=== PATIENT | male | born 1935 | race Caucasian/White ===

== ENCOUNTER 2024-09-29 03:43 | Emergency (ER) | payer OTHER, SELFPAY ==
[2024-09-29] VITALS (8 sets, daily range): BP systolic 105–160; BP diastolic 54–86; PULSE 81; O2SAT 97; BMI 25.1
--- NOTE | 2024-09-29 03:51 | ED.GENMED ---
History of Present Illness
<Doug Richard DO - Last Filed: 09/29/24 06:39>
General
Chief Complaint: Fall
Source: patient and family
Exam Limitations: none
Time Seen by Provider: 09/29/24 03:49
Nursing documentation reviewed up to this point in time: agreed with
History of Present Illness
History of Present Illness:
This is a pleasantly demented 89-year-old male that presents to the emergency department after found him on the ground after a fall. He had a small abrasion to the back of the skull. She became concerned so she called 911. , who lives
with him despite his Alzheimer's, states that he typically gets up in the morning. She states that he would go to the kitchen and juice some fresh oranges. This morning she noted that he had used some ' yogurt and A grapefruit to attempt to juice
'. found on the ground and surmises that it was this passed out. Upon arrival, patient had no complaints. Bleeding had stopped. Patient was back to baseline.
Past History
<Doug Richard DO - Last Filed: 09/29/24 06:39>
Past History
ED Past Medical History: HTN and Other (Dementia, BPH)
ED Past Surgical History: Cholecystectomy
Social History
Tobacco: Non-smoker
Alcohol: None
Review of Systems
<Doug Richard DO - Last Filed: 09/29/24 06:39>
Review of Systems
Allergies reviewed?: Yes
All Other Systems: ROS reviewed and negative except as documented in HPI and ROS
Constitutional: Reports no symptoms
EENT: Reports no symptoms
Respiratory: Reports no symptoms
Cardiac: Reports no symptoms
ABD/GI: Reports no symptoms
: Reports no symptoms
Musculoskeletal: Reports no symptoms
Skin: Reports no symptoms
Neurological: Reports no symptoms
Endocrine: Reports no symptoms
Hematologic/Lymphatic: Reports no symptoms
Psychiatric: Reports anxiety
Course
<Doug Richard, DO - Last Filed: 09/29/24 06:39>
Orders/Labs/Results
Orders:
Orders
09/29/24 03:50
CT Head W/o Iv Contrast Urgent
Comment:
Reason For Exam: fall with posterior head trauma
09/29/24 03:57
Urinalysis Reflex To Culture Urgent
Date Specimen was Collected: 09/29/24
Time Specimen was Collected: 03:55
Urine Microscopic Reflex Cult Urgent
Urine Culture Urgent
JOHN Source: U
Specimen Description:
Date Specimen was Collected: 09/29/24
Time Specimen was Collected: 03:55
09/29/24 05:24
Fosfomycin [Monurol] 3 gm PO ONCE ONE
09/29/24 05:53
Ambulate Patient-Treatment ONCE
09/29/24 07:29
Hip, Left 2-3 Views [CR Hip - LT w/wo Pel 2-3 Vw*] Urgent
Comment:
Reason For Exam: pain
Include a pelvis x-ray?: Yes
Physical Therapy Consult [Pt Eval And Treat] Urgent
Activity Level: Out of Bed-Early Mobility
Abnormal Lab Results
09/29/24
03:57
Ur Occult Blood Reflex 2+ A
(Negative)
Leukocyte Esterase Rfl 2+ A
(Negative)
Urine RBC 11-15 A /HPF
(0-2)
Urine WBC (Reflex) >100 A /HPF
(0-5)
Urine Bacteria (Reflex) Many A
(Negative)
Vital Signs
Initial and Last Documented VS:
Initial Vital Signs
Temp Pulse Resp BP Pulse Ox
36.7 C 62 16 131/74 96
09/29/24 03:46 09/29/24 03:46 09/29/24 03:46 09/29/24 03:46 09/29/24 03:46
Last Documented Vital Signs
Temp Pulse Resp BP Pulse Ox
36.7 C 57 14 160/86 96
09/29/24 03:46 09/29/24 06:30 09/29/24 06:30 09/29/24 08:54 09/29/24 08:44
<Sherry Palafox PA-C - Last Filed: 10/02/24 07:22>
Orders/Labs/Results
Orders:
Orders
09/29/24 03:50
CT Head W/o Iv Contrast Urgent
Comment:
Reason For Exam: fall with posterior head trauma
09/29/24 03:57
Urinalysis Reflex To Culture Urgent
Date Specimen was Collected: 09/29/24
Time Specimen was Collected: 03:55
Urine Microscopic Reflex Cult Urgent
Urine Culture Urgent
JOHN Source: U
Specimen Description:
Date Specimen was Collected: 09/29/24
Time Specimen was Collected: 03:55
09/29/24 05:24
Fosfomycin [Monurol] 3 gm PO ONCE ONE
09/29/24 05:53
Ambulate Patient-Treatment ONCE
09/29/24 07:29
Hip, Left 2-3 Views [CR Hip - LT w/wo Pel 2-3 Vw*] Urgent
Comment:
Reason For Exam: pain
Include a pelvis x-ray?: Yes
Physical Therapy Consult [Pt Eval And Treat] Urgent
Activity Level: Out of Bed-Early Mobility
Abnormal Lab Results
09/29/24
03:57
Ur Occult Blood Reflex 2+ A
(Negative)
Leukocyte Esterase Rfl 2+ A
(Negative)
Urine RBC 11-15 A /HPF
(0-2)
Urine WBC (Reflex) >100 A /HPF
(0-5)
Urine Bacteria (Reflex) Many A
(Negative)
Vital Signs
Initial and Last Documented VS:
Initial Vital Signs
Temp Pulse Resp BP Pulse Ox
36.7 C 62 16 131/74 96
09/29/24 03:46 09/29/24 03:46 09/29/24 03:46 09/29/24 03:46 09/29/24 03:46
Last Documented Vital Signs
Temp Pulse Resp BP Pulse Ox
36.7 C 57 14 160/86 96
09/29/24 03:46 09/29/24 06:30 09/29/24 06:30 09/29/24 08:54 09/29/24 08:44
<Doug Richard DO - Last Filed: 09/29/24 06:39>
Update Note
Update Note:
CT HEAD
IMPRESSION:
No acute hemorrhage, herniation, or hydrocephalus.
No calvarial fracture.
The visualized paranasal sinuses and mastoid air cells are clear.
09/29/2024 0639 AM: Patient able to ambulate around the room with ease. Patient to be discharged home. Discussed plan with who is in agreement.
<Sherry Palafox PA-C - Last Filed: 10/02/24 07:22>
Update Note
Update Note:
CT HEAD
IMPRESSION:
No acute hemorrhage, herniation, or hydrocephalus.
No calvarial fracture.
The visualized paranasal sinuses and mastoid air cells are clear.
09/29/2024 0639 AM: Patient able to ambulate around the room with ease. Patient to be discharged home. Discussed plan with who is in agreement.
10/02/2024 0722 AM
Prelim urine culture positive. Was given fosfomycin. Will await sensitivities
ED Attending Note
<Doug Richard DO - Last Filed: 09/29/24 06:39>
-
Portions of this chart may have been created with voice recognition software.� Occasional wrong word or��sound alike� substitutions may have occurred due to the inherent limitations of voice recognition software.
Discharge Plan
Departure
Patient Disposition: Home (Routine Discharge)
Date of Disposition: 09/29/24
Time of Disposition: 06:37
Patient with high blood pressure during this ER visit?: Yes
Condition: Good
Discharge Problem:
Fall, Abrasion, Acute UTI
Instructions: Head Injury in Adults (DC), Preventing falls in adults, Skin Abrasions (DC), Urinary Tract Infection, Adult ED, BLOOD PRESSURE
Prescriptions:
No Action
donepezil 10 mg Tablet
10 mg PO QPM
atenolol 25 mg Tablet
25 mg PO QPM
finasteride 5 mg Tablet
5 mg PO QPM
cholecalciferol (vitamin D3) [Vitamin D3] 50 mcg (2,000 unit) Capsule
50 mcg PO QPM
mecobalamin (vitamin B12) [B12 Active] 1,000 mcg Tablet,Chewable
1,000 mcg PO QPM
Chlorpheniramine Allergy
1 tab PO DAILY PRN (Reason: allergies)
Referrals:
Leigh Joseph MD [Family Provider] -
Activity Restrictions/Additional Instructions:
Your urinary tract infection was treated with a one-time dose of antibiotics. No further antibiotics needed unless your culture suggests otherwise. If so you will get a phone call.
It was a pleasure meeting you and taking part in your care. We hope for your continued healing and wellness.
Please read discharge instructions in their entirety. However, they are for general education and may not describe your exact diagnosis at discharge. Information on your ER visit and medical conditions were discussed with you along with appropriate
follow up information...
If indicated, please take your medications as instructed and indicated on discharge paperwork.
Please schedule a follow up appointment as directed. Call to schedule an appointment
Please return to the emergency department with ANY change in, persisting, or worsening of symptoms. If any of your symptoms do not improve, or persist, or become more severe within 6-12 hours, please return to the emergency department for further
care.
Please return to the emergency department if you develop a headache, neck pain/stiffness, fever greater than 100.4F, chest pain, shortness of breath, persistent nausea, vomiting, slurred speech, difficulty walking, numbness/tingling, weakness, signs
of infection or any other symptoms that are worrisome to you.
If you have any questions or concerns please do not hesitate to call the Hospital at or E-mail me directly at [email or web address]
Interventions
Interventions:
*Risk Screen - Suicide Last Done: 09/29/24 03:46
*General Assessment Last Done: 09/29/24 03:46
*Neglect/Abuse Screening Last Done: 09/29/24 03:46
ED- Fall Risk Assessment Last Done: 09/29/24 05:00
*ED COVID-19 Vaccine History Last Done: 09/29/24 03:46
*Nursing Disposition Last Done: 09/29/24 07:13
ED-Musculoskeletal Assessment Last Done: 09/29/24 08:08
ED- Neurological Assessment Last Done: 09/29/24 08:00
ED-Skin Assessment Last Done: 09/29/24 08:08
Discharge Date and Time
Discharge Date/Time: 09/29/24 09:18
Print Language: [id number]
[2024-09-29 04:06] LABS: Urine Albumin Trace (Neg - Trace); Urine Bilirubin Negative (Negative); Urine Character Slightly Cloudy (Clear); Urine Color Yellow; Urine Glucose Negative (Negative); Urine Ketone Negative (Negative); Urine Leukocyte 2+ (Negative); Urine Nitrite Negative (Negative); Urine Occult Blood 2+ (Negative); Urine Urobilinogen Negative (Neg - 1+); Urine pH 6.5 (5.0-9.0)
[2024-09-29 04:53] LABS: Urine Amorphous Seen; Urine Mucus Moderate; Urine Squamous Cell >30 /LPF (Few); Urine White Cell >100 /HPF (0-5)
[2024-09-29 04:54] LABS: Urine Bacteria Many (Negative)
--- NOTE | 2024-09-29 05:00 | EDRN ---
Patient and were provided with a drink of juice, call santos in reach.
[2024-09-29] MEDS: MONUROL 3 GM PO (06:41)
--- NOTE | 2024-09-29 06:58 | EDRN ---
Patient was able to ambulate without difficulty and will be discharged home with , who called facility for a ride
--- NOTE | 2024-09-29 12:15 | CM ---
CM called patient's to confirm choice of home PT provider. Patient is active with [facility]. CM sent updated clinical via fax and request to add PT to referral. CM left message with [facility] with update.
== END 2024-09-29 09:18 | disposition home or self-care (01) ==
LOC: EMR 03:43
PROVIDERS: EMERGENCY PHYSICIAN Student in an Organized Health Care Education/Training Program; FAMILY PHYSICIAN Internal Medicine Geriatric Medicine
DX: S00.91XA Abrasion of unspecified part of head, initial encounter (principal); W19.XXXA Unspecified fall, initial encounter; N39.0 Urinary tract infection, site not specified; F02.80 Dementia in other diseases classified elsewhere, unspecified severity, without behavioral disturbance, psychotic disturbance, mood disturbance, and anxiety; I10 Essential (primary) hypertension
CPT/HCPCS: 99285; 70450; 73502; 81003; 81015; 87077; 87086; 87088